=== PATIENT | female | born 1955 | race Caucasian/White ===

== ENCOUNTER → 2024-06-26 | Outpatient (CLI) | payer OTHER, SELFPAY ==
--- NOTE | 2024-06-26 | XR_ITS ---
EXAMINATION: Cervical spine, 5 views Technique: Cervical spine AP, AP odontoid, lateral, bilateral obliques, 5 views Exam date and time: June 26, 2024 1357 hours INDICATIONS: Neck pain several years radiating down the left shoulder FINDINGS: Adequate alignment cervical vertebral bodies. No cervical fracture No significant neural foraminal stenosis The odontoid is intact No significant cervical disc narrowing IMPRESSION: No cervical fracture No significant cervical disc narrowing
--- NOTE | 2024-06-26 13:21 | XR_ITS ---
Examination: PA lateral chest 2 views TECHNIQUE: Upright PA lateral chest 2 views Exam date and time: June 26, 2024 1407 hours Comparison January 15, 2022 INDICATIONS: Coughing shortness of breath beginning one week ago. FINDINGS: Normal heart size Lungs are clear. Old deformity left clavicle IMPRESSION: No pneumonia identified
--- NOTE | 2024-06-26 13:21 | XR_ITS ---
Examination: Lumbar spine, 5 views Technique: Lumbar spine AP, lateral, coned lateral lower lumbar spine, bilateral obliques 5 views Exam date and time: June 26, 2024 1357 hours INDICATIONS: Low back pain several years FINDINGS: Lumbar levoscoliosis 20 degrees Moderate osteopenia Advanced diffuse facet arthropathy Diffuse moderate to advanced lumbar degenerative disc disease, progressed compared to October 29, 2010 study No lumbar fracture IMPRESSION: Diffuse moderate to advanced lumbar degenerative disc disease
--- NOTE | 2024-06-26 13:21 | XR_ITS ---
Examination: Clavicle 2 views, left Technique: Clavicle AP, angled up AP, 2 views Exam date and time: June 26, 2024 1357 hours INDICATIONS: Left clavicle pain several years. FINDINGS: Old fracture deformity mid to distal shaft clavicle Mild osteoarthritis acromioclavicular joint. No acute fracture IMPRESSION: Old healed fracture deformity clavicular shaft
== END | disposition home or self-care (01) ==
PROVIDERS: PCP Internal Medicine; Referring Provider Internal Medicine; Visit Provider Internal Medicine
DX: M51.369 Other intervertebral disc degeneration, lumbar region without mention of lumbar back pain or lower extremity pain (principal); R07.89 Other chest pain; M54.2 Cervicalgia; M54.9 Dorsalgia, unspecified; R06.00 Dyspnea, unspecified
CPT/HCPCS: 71046; 72050; 72110; 73000

== ENCOUNTER → 2024-06-29 | Outpatient (CLI) | payer OTHER, SELFPAY ==
[2024-06-29 12:03] LABS: Basophils % (Auto) 1 % (0-2.5); Eosinophils # (Auto) 0.1 Thou/mm3 (0.0-0.5); Eosinophils % (Auto) 2 % (0-10); Hematocrit 36.7 % (36.0-46.0); Hemoglobin 11.1 g/dL (12.0-16.0); Immature Granulocytes % (Auto) 0 % (0-0); Immature Granulocytes Auto 0.02 Thou/mm3 (0.00-0.00); Lymphocytes # (Auto) 1.4 Thou/mm3 (1.0-4.8); Lymphocytes % (Auto) 25 % (10-50); Mean Corpuscular HGB Conc 30.2 g/dl (31.0-37.0); Mean Corpuscular Volume 83 fL (80-100); Monocytes # (Auto) 0.4 Thou/mm3 (0.0-0.8); Monocytes % (Auto) 6 % (0-12); Neutrophils # (Auto) 3.8 Thou/mm3 (1.8-7.7); Neutrophils % (Auto) 66 % (37-80); Nucleated Red Blood Cell % 0 /100 WBC (0); Platelet Count 201 Thou/mm3 (140-440); RDW Standard Deviation 49.7 fL (36.4-46.3); Red Blood Count 4.44 Miln/mm3 (4.00-5.20); White Blood Count 5.8 Thou/mm3 (3.6-11.0)
[2024-06-29 12:13] LABS: Glucose Estimated Average 117 mg/dL (80-131); Hemoglobin A1C 5.7 % Hgb (4.8-6.0)
[2024-06-29 12:20] LABS: Vitamin B12 302 pg/mL (211-911); Vitamin D 25 Hydroxy Total 23.6 ng/mL (7.3-40.2)
[2024-06-29 12:27] LABS: Alanine Aminotransferase 10 U/L (10-49); Albumin/Globulin Ratio 1.8 (1.2-2.2); Alkaline Phosphatase 96 U/L (46-116); Anion Gap 7 (7-16); Aspartate Amino Transferase 16 U/L (0-34); BUN/Creatinine Ratio 17 Ratio (12-20); Bilirubin,Total 0.6 mg/dL (0.3-1.2); Blood Urea Nitrogen 15 mg/dL (9-23); Carbon Dioxide 28.2 mMol/L (20.0-31.0); Cardiac Risk Estimate 4.5 RATIO (3.7-5.6); Chloride 108 mMol/L (98-107); Cholesterol 178 mg/dL (132-200); Creatinine (Component) 0.9 mg/dL (0.6-1.3); Free T4 (Free Thyroxine) 0.84 ng/dL (0.89-1.76); Globulin 2.2 gm/dL (2.3-3.5); Glucose 91 mg/dL (74-106); HDL Cholesterol 40 mg/dL (40-60); LDL Cholesterol,Calculated 115 mg/dL (0-130); Osmolality,Calculated 285 (275-295); Potassium 4.5 mMol/L (3.4-5.1); Sodium 143 mMol/L (136-145); Thyroid Stimulating Hormone 2.08 uIU/mL (0.55-4.78); Total Protein 6.2 gm/dL (5.7-8.2); Triglycerides 117 mg/dL (30-150); eGFR > 60 See Note
== END | disposition home or self-care (01) ==
LOC: COPL 10:47
PROVIDERS: PCP Internal Medicine; Referring Provider Internal Medicine; Visit Provider Internal Medicine
DX: Z00.00 Encounter for general adult medical examination without abnormal findings (principal); E55.9 Vitamin D deficiency, unspecified
CPT/HCPCS: 36415; 80053; 80061; 82306; 82607; 83036; 84439; 84443; 85025

== ENCOUNTER → 2024-07-20 | Outpatient (CLI) | payer OTHER, SELFPAY ==
--- NOTE | 2024-07-20 09:15 | XR_ITS ---
Examination: Screening digital mammography, bilateral Computer aided detection 3-D breast Tomosynthesis, bilateral Date and time of exam: 04/21/2024, 8:58 AM Comparisons: 07/01/2014 Indications: Screening Technique: Nonmagnified MLO, CC views of the breasts to been obtained, reconstructed from 3-D Tomosynthesis images. R2 computer aided detection program utilized for evaluation of suspicious masses and/or abnormal calcifications. 3-D Tomosynthesis images obtained. Technologist: Findings: There are scattered areas of fibroglandular density. No evidence of abnormal masses or suspicious calcifications. Impression: BI-RADS category 1: Negative findings (within normal) Recommend 1 year follow-up mammogram
== END | disposition home or self-care (01) ==
LOC: CDIM 08:45
PROVIDERS: Referring Provider Internal Medicine; Visit Provider Internal Medicine
DX: Z12.31 Encounter for screening mammogram for malignant neoplasm of breast (principal); R92.313 Mammographic fatty tissue density, bilateral breasts
CPT/HCPCS: 77063; 77067

== ENCOUNTER → 2024-09-28 | Outpatient (CLI) | payer OTHER, SELFPAY ==
--- NOTE | 2024-09-28 09:01 | XR_ITS ---
Examination: Knee, right , 3 views Technique: Knee AP, lateral, oblique 3 views Date and time of exam: September 28, 2024 0907 hours INDICATIONS: Injury to the knee 2 weeks ago, knee pain. FINDINGS: Prominent osteopenia Mild narrowing medial joint space and patellofemoral joint space Small knee effusion No fracture IMPRESSION: No fracture or dislocation
== END | disposition home or self-care (01) ==
PROVIDERS: PCP Internal Medicine; Referring Provider Internal Medicine; Visit Provider Internal Medicine
DX: S89.91XA Unspecified injury of right lower leg, initial encounter (principal); X58.XXXA Exposure to other specified factors, initial encounter
CPT/HCPCS: 73562

== ENCOUNTER 2024-10-10 09:24 | Emergency (ER) | payer OTHER, SELFPAY ==
[2024-10-10 09:25] VITALS: BMI 32.5
[2024-10-10 09:45] VITALS: BP 125/62; PULSE 55; RESP 16; TEMP 36.6; O2SAT 99
--- NOTE | 2024-10-10 10:04 | EDNOTE_ITS ---
<Statement entered by Dolores Turner MD - 10/19/24 19:27> As co-signing physician, I was present and available for consult prn. I concur with the plan and care as documented by the midlevel provider. Lower Extremity Injury RME/HPI General Chief Complaint: Extremity Injury, Lower Stated Complaint: FELL & HURT MY R KNEE X2 WKS AGO; ASKING FOR MRI Time Seen by Provider: 10/10/24 09:40 Source: patient Arrival date/time: 10/10/24 09:24 68-year-old female with no known medical history presents to the emergency room with a chief complaint of tenderness and pain to her right knee x 2 weeks. Mode of arrival: ambulatory Limitations: no limitations Related Data Home Medications ?Medication ?Instructions ?Recorded ?Confirmed ergocalciferol (vitamin D2) 1,250 1,250 mcg PO DAILY 0 10/23/20 10/23/20 mcg (50,000 unit) capsule (Vitamin D2) ferrous sulfate 325 mg (65 mg 325 mg PO DAILY 10/23/20 10/23/20 iron) tablet (FeroSul) gabapentin 300 mg capsule 300 mg PO HS 10/23/20 Previous Rx's ?Medication ?Instructions ?Recorded albuterol sulfate 90 mcg/actuation 90 mcg inhalation Q 6H PRN 01/08/22 breath activated powder shortness of breath #1 ea inhaler,sensor (Proair Digihaler) lidocaine 5 % topical patch 1 patch topical QDAY #15 e a 01/08/22 Allergies Allergy/AdvReac Type Severity Reaction Status Date / Time No Known Drug Allergies Allergy Verified 10/10/24 09:28 Review of Systems Review of Systems Systems Reviewed: All systems reviewed, normal except as documented Constitutional Constitutional: Reports system reviewed and no additional complaints, except as documented, Denies fatigue, Denies fever(s), Denies headache(s) and Denies weakness Eyes Eyes: Reports system reviewed and no additional complaints, except as documented, Denies blurry vision and Denies change in vision ENT Ears, Nose, Mouth, and Throat: Reports system reviewed and no additional complaints, except as documented, Denies otalgia, Denies headache(s), Denies nasal congestion, Denies throat swelling and Denies vertigo Cardiovascular Cardiovascular: Reports system reviewed and no additional complaints, except as documented, Denies chest pain, Denies dyspnea and Denies dyspnea on exertion Respiratory Respiratory: Reports system reviewed and no additional complaints, except as documented, Denies chest congestion, Denies cough, Denies dyspnea, Denies dyspnea on exertion and Denies wheezing Gastrointestinal Gastrointestinal: Reports system reviewed and no additional complaints, except as documented, Denies abdominal pain, Denies cramping, Denies nausea and Denies vomiting Genitourinary Genitourinary: Reports system reviewed and no additional complaints, except as documented Musculoskeletal Musculoskeletal: Reports system reviewed and no additional complaints, except as documented, Reports abnormal gait, Reports arthralgias, Denies back pain, Reports joint swelling and Reports limited range of motion Integumentary/Breasts Skin/Breast: Reports system reviewed and no additional complaints, except as documented and Denies wounds Neurologic Neurologic: Reports system reviewed and no additional complaints, except as documented, Reports abnormal gait, Denies confusion, Denies headache(s), Denies lack of coordination, Denies vertigo and Denies weakness Psychiatric Psychiatric: Reports system reviewed and no additional complaints, except as documented, Denies anxiety, Denies confusion, Denies depression, Denies paranoi a, Denies suicidal ideation and Denies tactile hallucinations Endocrine Endocrine: Reports system reviewed and no additional complaints, except as docu mented and Denies fatigue Hematologic/Lymphatic Hematologic/Lymphatic: Reports system reviewed and no additional complaints, except as documented and Denies lymphadenopathy Allergic/Immunologic Allergic/Immunologic: Reports system reviewed and no additional complaints, except as documented, Denies throat swelling, Denies urticaria and Denies wheezing Past Medical History Past Medical History NEUROLOGIC: Negative Neurological Disorders or Seizures CARDIAC: Negative Cardiac Disorders or Congestive Heart Failure RESPIRATORY: Negative Chronic Obstructive Pulmonary Disease (COPD) GASTROINTESTINAL: Positive Gastrointestinal Disorders and Gastrointestinal Bleed GENITOURINARY: Negative Genitourinary Disorders or Renal Disease REPRODUCTIVE: Positive Previous Pregnancies MUSCULOSKELETAL: Positive Musculoskeletal Disorders and Arthritis ENDOCRINE: Negative Endocrine Disorders, Diabetes Mellitus Type 1 or Diabetes Mellitus Type 2 HEMATOLOGIC: Positive Blood Disorders and Anemia (takes iron) OTHER HISTORY: Negative Hospitalization, Falls, Blood Transfusions, Anesthesia Reactions or Cancer Surgical History SURGICAL: Positive Abdominal Surgery, Gastric Bypass Surgery, Hysterectomy and Section; Negative Cardiac Surgery or Joint Replacement Social History SMOKING STATUS: Never smoker ED Exam General Limitations: Present no limitations General appearance: Present alert and in no apparent distress Head Head exam: Present atraumatic Eye Eye exam: Present normal appearance, PERRL and EOMI ENT ENT exam: Present normal exam, normal oropharynx and mucous membranes moist Neck Neck exam: Present normal inspection, full ROM and trachea midline Chest Chest inspection: Present normal inspection and symmetric chest wall rise Respiratory Respiratory exam: Present normal lung sounds bilaterally Cardiovascular Cardiovascular exam: Present regular rate, normal rhythm and normal heart sounds Abdominal Exam Abdominal exam: Present soft and normal bowel sounds Extremities Exam Extremities exam: Present normal inspection and full ROM Expanded Lower Extremity Exam Hip/Pelvis exam: Present normal inspection Upper leg exam: Present normal inspection Knee exam: Present tenderness, swelling, pain with valgus and pain with varus; Absent full ROM, deformity or effusion Back Exam Back exam: Present normal inspection and full ROM Neurological Exam Neurological exam: Present alert, oriented X3 and CN II-XII intact Psychiatric Psychiatric exam: Present normal affect and normal mood Skin Skin exam: Present warm, dry, intact and normal color Course Quality Measures none Orders Category Date Time Status federico wrap [Splint / Immobilizer] STAT Care 10/10/24 10:02 Active Ketorolac Inj [Toradol Inj] Med 10/10/24 10:02 Once 30 mg IM X1 ONE Vital Signs Vital signs: Vital Signs Temperature 97.8 F 10/10/24 09:45 Pulse Rate 55 L 10/10/24 09:45 Respiratory Rate 16 10/10/24 09:45 Blood Pressure 125/62 10/10/24 09:45 Pulse Oximetry (%) 99 10/10/24 09:45 Oxygen Delivery Method Room Air 10/10/24 09:45 Extremity Injury, Lower MDM Narrative MDM Narrative:: 68-year-old female with no known medical history presents to the emergency room with a chief complaint of tenderness and pain to her right knee x 2 weeks. Patient is hemodynamically stable and in no apparent distress Patient is asking for an MRI of her knee. Patient has an outpatient appointment for her MRI. Patient has had x-rays to her right knee and were negative for any acute fractures or dislocations I spoke to the patient and told her that she needs to keep her appointment for MRI as this will need to be done as an outpatient. There is no increased swel ling or erythema. There are no signs of infection. Patient states she is having tenderness and pain but is able to ambulate. Patient is not wearing a knee brace or any compression. Patient was educated in the Federico wrap was placed. Patient was given pain medication with significant improvement to her symptoms Patient was discharged and educated to follow-up with primary care provider in the next 24 to 48 hours and return to the emergency room for any evidence of worsening signs or symptoms Patient data External records reviewed:: [facility] previous records Clinical information provided by:: patient Social determinants that could affect healthcare access:: none Patient has the following chronic illnesses:: No chronic illness How is presenting disease/condition affected by chronic disease/condition?: no chronic disease Evaluation data The following diagnostics were reviewed and interpreted by me:: lab results and radiology exam(s) Lab and/or radiology exams considered but not ordered:: Labs and radiology exams considered and ordered Interpretation Summary: N/A Medications / Prescriptions Medications or Prescriptions considered but not ordered:: Medication given Medication administrations:: Medication Administration History Ketorolac Tromethamine (Ketorolac Inj 60 Mg/2 Ml Vial) 30 mg IM X1 ONE Stop: 10/10/24 10:03 Medication given Consultations Consultation(s) initiated? (list below): No Diagnosis Extremity Injury, Lower Differential Diagnosis: acute internal derangement of knee and other (Knee sprain/knee fracture) Most likely diagnosis given after review of the tests above:: Knee sprain Admission Indicated Admission indicated?: not indicated Admission Request Was there a request for admission?: No Disposition Plan Disposition Plan: Discharge Discharge Attestation Discharge Attestation: The patient and all family members were given an opportunity to ask questions and understood the discharge instructions. Discharge instructions specifically effects, indications for sooner follow up or return to the emergency department, and the expected course of current diagnosis. Patient condition: Stable Discharge Plan Plan Patient Disposition: HOME (Self Care) Discharge Disposition comment: Stable Prescriptions/Referrals Prescriptions/Med Rec: No Action ferrous sulfate [FeroSul] 325 mg (65 mg iron) tablet 325 mg PO DAILY Patient Comments: TAKE ONE TABLET BY MOUTH EVERY DAY VITAMIN gabapentin 300 mg capsule 300 mg PO HS Patient Comments: TAKE 1 CAPSULE BY MOUTH AT BEDTIME ergocalciferol (vitamin D2) [Vitamin D2] 1,250 mcg (50,000 unit) capsule 1,250 mcg PO DAILY Patient Comments: TAKE ONE CAPSULE BY MOUTH EVERY WEEK VITAMIN Proair Digihaler 90 mcg/actuation aero powdr breath act w/sensor 90 mcg inhalation Q6H PRN (Reason: shortness of breath) Qty: 1 0RF lidocaine 5 % adhesive patch,medicated 1 patch topical QDAY Qty: 15 0RF Rx Instructions: leave on most painful area for up to 12 hrs Problem List Clinical Impression: Right knee sprain Patient/Caregiver Discharge Instructions Education Materials: ED FEDERICO Wrap, ED Knee Sprain Additional Instructions: Please follow-up with your primary care provider in the next 24 to 48 hours Please keep your appointment for your MRI as this will assess for any ligament damage or tears. After your results of your MRI if there is a tear you will need to follow-up with an health education specialist for further management Please keep your Federico wrap in place until you are seen and cleared by health education specialist. For any evidence of worsening signs or symptoms return to the emergency room immediately Print Language: Bolivian Stand Alone Forms: Shital Award Info., Patient Portal Info Letter PA/BOX MAKER PAPERBOARD Supervising Physician PA/BOX MAKER PAPERBOARD Supervising Physician: Dr. TURNER
[2024-10-10] MEDS: KETOROLAC INJ 60 MG/2 ML VIAL 30 MG IM (10:17)
== END 2024-10-10 10:23 | disposition home or self-care (01) ==
LOC: SERX 10:27
PROVIDERS: Emergency Provider Emergency Medicine; PCP Internal Medicine
DX: S83.91XA Sprain of unspecified site of right knee, initial encounter (principal); W19.XXXA Unspecified fall, initial encounter
CPT/HCPCS: 96372; 99283; J1885

== ENCOUNTER → 2024-11-28 | Outpatient (CLI) | payer OTHER, SELFPAY ==
--- NOTE | 2024-11-28 10:30 | XR_ITS ---
Exam: MRI knee without contrast, right Date and time of exam: November 28, 2024 1201 hours INDICATIONS: Medial right-sided knee pain swelling burning sensation after fall 6 weeks ago Technique: Multiple axial, coronal, and sagittal sections on the knee have been obtained. T2-Weighted sagittal, fat-suppressed images, TR 3,500, TE 62, T2 weighted coronal fat-saturated images, TR 3,500, TE 62 Proton density sagittal sections, TR 1800, TE 31. T-1 weighted coronal images, TR 524, TE 13.0 Findings: Medial meniscus anterior horn intact. Medial meniscus, body replaced by isointense signal, extruded from the joint space, meniscocapsular separation. Posterior horn medial meniscus horizontal linear tear communicating superior articular surface, meniscocapsular separation. Lateral meniscus anterior horn horizontal linear tear Lateral meniscus, body is horizontal linear tear Posterior horn lateral meniscus horizontal linear tear communicating inner margin Anterior cruciate ligament moderate sprain Posterior cruciate ligament appears intact. Knee effusion is large. Quadriceps and patellar tendons appear intact. There is no evidence of tendinosis. Inflammatory change or fracture of Hoffa's fat pad is not seen. Medial patellar facet demonstrates severe thinning. Lateral patellar facet cartilage demonstrates severe thinning. Trochlear cartilage demonstrates severe thinning. Marrow signal increased proximal medial tibia Medial collateral ligament appears intact. Illiotibial band and fibular collateral ligament are intact. Biceps femoris tendons appear intact. Medial femoral condylar articular cartilage demonstrates severe thinning. Lateral femoral condylar articular cartilage demonstratessevere thinning. Tibial plateau cartilage demonstrates severe thinning. Impression: Extensive medial lateral meniscus tears Meniscocapsular separation body and posterior horn medial meniscus Moderate sprain anterior cruciate ligament
== END | disposition home or self-care (01) ==
PROVIDERS: PCP Internal Medicine; Referring Provider Internal Medicine; Visit Provider Internal Medicine
DX: S83.281A Other tear of lateral meniscus, current injury, right knee, initial encounter (principal); S83.241A Other tear of medial meniscus, current injury, right knee, initial encounter; S83.194A Other dislocation of right knee, initial encounter; S83.511A Sprain of anterior cruciate ligament of right knee, initial encounter; W19.XXXA Unspecified fall, initial encounter
CPT/HCPCS: 73721

== ENCOUNTER → 2024-12-01 | Outpatient (CLI) | payer OTHER, SELFPAY ==
--- NOTE | 2024-12-01 13:00 | XR_ITS ---
Examination: MRI cervical spine without intravenous contrast Date and time of exam: December 01, 2024, 1340 hours INDICATIONS: Neck pain radiating to the shoulders 5 years Technique: Multiple axial and sagittal sections of the cervical spine to been obtained. T2 weighted sagittal sections, TR 3, 270, TE 117 T1-weighted sagittal sections, TR 500, TE 11 T1-weighted axial sections, TR 607, TE 12, axial sections TR 18, TE 27 and T2 weighted transverse sections, TR 3920, TE 122. Findings: 1 mm anterolisthesis C4 on C5 No cervical fracture or Intact odontoid. Diffuse cervical disc desiccation. Mild disc narrowing at C4-C5, C5-C6, C6-C7 Diffuse cervical disc desiccation No localized enlargement cervical cord C2-C3 no disc protrusion C3-C4 no disc protrusion C4-C5 3 mm central subarticular osteophyte disc complex, advanced left neural foraminal stenosis C5-C6 mild left neural foraminal stenosis C6-C7 no disc protrusion C7-T1 no disc protrusion IMPRESSION: No cervical fracture Mild cervical degenerative disc disease C4-C5, C5-C6, C6-C7 C4-C5 3 mm central subarticular osteophyte disc complex, advanced left neural foraminal stenosis
== END | disposition home or self-care (01) ==
LOC: SMRI 12:59
PROVIDERS: PCP Internal Medicine; Referring Provider Psychiatry & Neurology Neurology; Visit Provider Psychiatry & Neurology Neurology
DX: M50.321 Other cervical disc degeneration at C4-C5 level (principal); M48.02 Spinal stenosis, cervical region; M25.78 Osteophyte, vertebrae
CPT/HCPCS: 72141

== ENCOUNTER → 2024-12-19 | Outpatient (CLI) | payer OTHER, SELFPAY ==
[2024-12-19 16:52] LABS: Basophils # (Auto) 0.0 Thou/mm3 (0.0-0.2); Basophils % (Auto) 1 % (0-2.5); Eosinophils # (Auto) 0.2 Thou/mm3 (0.0-0.5); Eosinophils % (Auto) 3 % (0-10); Hematocrit 35.1 % (36.0-46.0); Hemoglobin 10.4 g/dL (12.0-16.0); Immature Granulocytes Auto 0.01 Thou/mm3 (0.00-0.00); Lymphocytes # (Auto) 1.8 Thou/mm3 (1.0-4.8); Lymphocytes % (Auto) 31 % (10-50); Mean Corpuscular HGB Conc 29.6 g/dl (31.0-37.0); Mean Corpuscular Hemoglobin 24.2 pg (25.0-35.0); Mean Corpuscular Volume 82 fL (80-100); Monocytes # (Auto) 0.4 Thou/mm3 (0.0-0.8); Monocytes % (Auto) 8 % (0-12); Neutrophils # (Auto) 3.4 Thou/mm3 (1.8-7.7); Neutrophils % (Auto) 58 % (37-80); Nucleated Red Blood Cell # 0.00 Thou/mm3 (0.00-0.00); Nucleated Red Blood Cell % 0 /100 WBC (0); Platelet Count 217 Thou/mm3 (140-440); RDW Standard Deviation 49.7 fL (36.4-46.3); Red Blood Count 4.30 Miln/mm3 (4.00-5.20); White Blood Count 5.8 Thou/mm3 (3.6-11.0)
[2024-12-19 17:00] LABS: T4 (Thyroxine) 8.0 mcg/dL (4.5-10.9)
[2024-12-19 17:04] LABS: Folate 7.43 ng/mL (>5.38); Glucose Estimated Average 131 mg/dL (80-131); Hemoglobin A1C 6.2 % Hgb (4.8-6.0); Vitamin B12 266 pg/mL (211-911); Vitamin D 25 Hydroxy Total 29.2 ng/mL (7.3-40.2)
[2024-12-19 17:18] LABS: Alanine Aminotransferase 11 U/L (10-49); Albumin, Serum 4.0 gm/dL (3.4-4.8); Albumin/Globulin Ratio 1.8 (1.2-2.2); Alkaline Phosphatase 99 U/L (46-116); Anion Gap 7 (7-16); Aspartate Amino Transferase 16 U/L (0-34); BUN/Creatinine Ratio 15 Ratio (12-20); Bilirubin,Total 0.5 mg/dL (0.3-1.2); Blood Urea Nitrogen 15 mg/dL (9-23); Calcium 9.0 mg/dL (8.3-10.6); Calcium (Corrected) 9.0 mg/dL (8.5-10.1); Carbon Dioxide 29.6 mMol/L (20.0-31.0); Chloride 106 mMol/L (98-107); Creatinine (Component) 1.0 mg/dL (0.6-1.3); Free T4 (Free Thyroxine) 0.94 ng/dL (0.89-1.76); Globulin 2.2 gm/dL (2.3-3.5); Glucose 85 mg/dL (74-106); HDL Cholesterol 44 mg/dL (40-60); Osmolality,Calculated 284 (275-295); Potassium 4.3 mMol/L (3.4-5.1); Sodium 143 mMol/L (136-145); Thyroid Stimulating Hormone 3.77 uIU/mL (0.55-4.78); Total Protein 6.2 gm/dL (5.7-8.2); Triglycerides 140 mg/dL (30-150); eGFR > 60 See Note
[2024-12-19 18:09] LABS: Cardiac Risk Estimate 4.3 RATIO (3.7-5.6); Cholesterol 190 mg/dL (132-200); LDL Cholesterol,Calculated 118 mg/dL (0-130)
[2024-12-25 06:36] LABS: T3,Total* 112 ng/dL (76-181)
== END | disposition home or self-care (01) ==
PROVIDERS: PCP Internal Medicine; Referring Provider Student in an Organized Health Care Education/Training Program; Visit Provider Student in an Organized Health Care Education/Training Program
DX: F33.9 Major depressive disorder, recurrent, unspecified (principal)
CPT/HCPCS: 36415; 80053; 80061; 81001; 82306; 82607; 82746; 83036; 84436; 84439; 84443; 84480; 85025

== ENCOUNTER 2025-02-05 10:06 | Outpatient (AMB) | payer OTHER, SELFPAY ==
[2025-02-05 10:26] VITALS: PULSE 60; RESP 18; TEMP 36.2; O2SAT 98; BMI 32.5
--- NOTE | 2025-02-05 10:26 | ORTHONT_ITS ---
Vital signs 02/05/25 10:26 Height 1.75 m Height Method Stated Weight 99.79 kg Weight Measurement Method Stated by Patient BMI 32.5 Blood Pressure Source Automatic Cuff Blood Pressure Location Left Upper Arm Position Sitting Respiration 18 Pulse 60 Pulse Source Monitor Temp 97.1 F Temp Source Temporal Artery Scan Pulse Oximetry (%) 98 Oxygen Delivery Method Room Air Med/Allergies Allergies & Medications Allergies No Known Drug Allergies Allergy (Verified 02/05/25 10:28) Medication Reconciliation ergocalciferol (vitamin D2) 1,250 mcg (50,000 unit) capsule (Vitamin D2) 1,250 mcg PO DAILY 10/23/20 [History Confirmed 02/05/25] ferrous sulfate 325 mg (65 mg iron) tablet (FeroSul) 325 mg PO DAILY 10/23/20 [History Confirmed 02/05/25] gabapentin 300 mg capsule 300 mg PO HS 10/23/20 [History Confirmed 02/05/25] albuterol sulfate 90 mcg/actuation breath activated powder inhaler,sensor (Proair Digihaler) 90 mcg inhalation Q6H PRN shortness of breath #1 ea 01/08/22 [Rx Confirmed 02/05/25] lidocaine 5 % topical patch 1 patch topical QDAY #15 ea 01/08/22 [Rx Confirmed 02/05/25] meloxicam 7.5 mg tablet 7.5 mg PO QDAY #45 tabs 02/05/25 [Rx] Exam Exam Breathing is nonlabored. Patient has a normal mood and affect. Bilateral extremities were evaluated and demonstrates sensation intact to light touch. Palpable pedal pulses are present. No significant edema is present. Bilateral hips were examined. The patient has no pain with log roll of the hips. Internal rotation to 30 degrees and external rotation to 30 degrees is painless. Negative FADIR. The right knee was also examined. The right knee is in varus alignment. Range of motion from 0-115 degrees. Knee is stable to varus and valgus as well as AP translation with <5mm. Patient has a negative McMurrays. There is no pain with patellofemoral compression and no crepitus noted. The knee is tender to palpation medially. X-rays demonstrate moderate arthritis. She has an MRI which demonstrates medial and lateral meniscus tears as well as severe cartilage thinning of the medial tibial plateau Assessment and Plan Problem List (1) Pain in right knee: Status: Acute Plan: ASSESSMENT AND PLAN 1. Right knee pain: The right knee pain has been ongoing for approximately 3 months following an injury. An MRI revealed a meniscus tear and severe cartilage thinning, indicative of arthritis. The patient has not tried NSAIDs, physical therapy, or recent injections. A standing x-ray is necessary to determine if there is [id number] contact. A prescription for an anti-inflammatory medication will be provided for immediate relief. A standing x-ray will be ordered to assess the need for a total knee replacement. If the x-ray confirms [id number] contact, treatment options will include injections or surgery. Injections have been effe ctive in the past but eventually stopped working. The patient is advised to try the prescribed anti-inflammatory medication and to get the standing x-ray done today. Further treatment will be discussed based on the x-ray results. 2. Vascular issue in the right leg: New vascular changes in the right leg, including varicose veins. A referral to a vein specialist will be recommended for further evaluation and management. The patient is advised to follow up with their primary care physician for the referral to a vein doctor. Office Procedures GNS Level of Care Nursing/Assessment Patient Status: Initial/New Patient Nursing Assessment/Reassesment: Medication Reconciliation, Update PMH in EMR and Vital Signs Coordination of Care: Complex Care and Chronic Disease 1-5, Education Complex Pt/Fam, Consent,records obtained, informed consent, Lab and Imaging orders, Results/Orders obtained and Staff clarify orders Special Needs: Language special needs New Patient Charge New Patient Point Assignment: 1109 New Patient Point Charge: PAPER PATTERN FOLDER Level 3 (0391-4203) MA Intake Visit Data Collection New Patient or Established: New Patient (never been to [facility]) Reason for Visit:: RIGHT MENISCUS Seen by Clinical Staff ONLY (RN/MA): No Center Sales And Service Associate Required: No PCP or OBGYN visit in last 3 months: Yes Hx Now: No Do You Feel Safe at Home: Yes Authorities Contacted: N/A Questionairres Past Medical History Past Medical History Have you ever been diagnosed with any of the following: Neurological Problems Seizures: No Cardiology Problems Congestive Heart Failure: No Respiratory Problems Chronic Obstructive Pulmonary Disease (COPD): No Stomache/Intestinal Problems Gastrointestinal Bleed: Yes Genital/Urinary Problems Renal Disease: No Reproductive Problems Previous Pregnancies: Yes Musculoskeletal Problems Arthritis: Yes Endocrine Problems Diabetes Mellitus Type 1: No Diabetes Mellitus Type 2: No Blood Problems Anemia: Yes (takes iron) Other Problems Hospitalization: No Falls: No Blood Transfusions: No Anesthesia Reactions: No Cancer: No Surgical History Hysterectomy: Yes Subjective Visit Visit for: new patient and knee Immunization / Flu Flu Vaccine in the Last 12 Months: No Flu Vaccine Exclusion Criteria: No Exclusion Criteria History of Present Illness Chief complaint: RIGHT MENISCUS Date of injury / onset of symptoms: 3 MONTHS AGO HISTORY OF PRESENT ILLNESS IJesu, have obtained verbal consent from the patient, to be recorded during this encounter which may include, but not limited to, medical history, examination, treatment plans, and relevant health information.? Patient was informed that recording will be read and reviewed by myself before inclusion in the medical chart. The patient is a pleasant 69-year-old female who presents today for evaluation of her right knee. She has been experiencing right meniscus pain for the past 3 months. She sustained an injury to her right knee approximately 3 months ago, which was initially evaluated in the emergency room where an x-ray suggested a torn meniscus. Despite this, no further action was taken. Her primary care physician recommended physical therapy, but she found it too painful to continue. An MRI was performed, and she was referred to our clinic. Her mobility is severely limited due to the pain, and she has been using a wheelchair for the past week and a half. She reports the development of a knot in her knee and a sensation of fluid accumulation. Additionally, she notes a change in the appearance of her veins since the injury. She has a history of knee problems, which were previously attributed to growing pains. She has not received any treatment since her injury 3 months ago, other than attempting to manage the pain. 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 She also reports recent weight gain, which she believes is exacerbating her symptoms. She has found some relief from a homemade remedy and a combination of two Tylenol and two Advil tablets, as suggested by her [id number]. She has previously received injections for her knee, which provided temporary relief. PAST SURGICAL HISTORY: Left total knee arthroplasty approximately 3 years ago. Personal History Red flag PMH: none BMI Counceling provided: No Pain Pain level (0-10): 8 Pain location: inside (medial) and anterior Pain quality: sharp and burning Pain timing: increases with activity Associated signs & symptoms: numbness, weakness and stiffness Ambulatory data Ambulatory device: other (specify) (WHEELCHAIR) Treatments Number of previous injections: 0 Improvement with previous injections: No Number of Physical Therapy sessions: 0 Improvement with PT: No Improvement with NSAIDS: no Review of Systems Review of Systems: All systems negative unless otherwise noted in HPI.
--- NOTE | 2025-02-05 10:31 | XR_ITS ---
EXAMINATION: Bilateral AP knees standing single view Right knee. Lateral axial 3 views TECHNIQUE: Bilateral AP knees standing single view Right knee PA flexion standing, standing lateral, axial right knee 3 views total 4 views Date and time: February 05, 2025, 1043 hours, comparison September 28, 2024 INDICATIONS: Patient fell 3 months ago with injury to the right knee, right knee pain. FINDINGS: Moderate narrowing medial joint space right knee Meniscus calcification Moderate osteoarthritis right patellofemoral joint. No fracture Small knee effusion Total left knee arthroplasty with satisfactory alignment No loosening of the prosthetic components IMPRESSION: Moderate narrowing medial joint space right knee Moderate osteoarthritis right patellofemoral joint
== END 2025-02-05 10:35 | disposition home or self-care (01) ==
LOC: HODSRG 10:06
PROVIDERS: PCP Internal Medicine; Referring Provider Internal Medicine; Supervising Provider Orthopaedic Surgery Adult Reconstructive Orthopaedic Surgery; Visit Provider Orthopaedic Surgery Adult Reconstructive Orthopaedic Surgery
DX: M25.561 Pain in right knee (principal); I83.91 Asymptomatic varicose veins of right lower extremity; M17.11 Unilateral primary osteoarthritis, right knee
CPT/HCPCS: 73564; 99203; G0463

== ENCOUNTER 2025-02-07 10:41 | Outpatient (AMB) | payer OTHER, SELFPAY ==
--- NOTE | 2025-02-07 11:09 | ORTHONT_ITS ---
Vital signs 02/07/25 11:10 Height 1.75 m Height Method Stated Weight 99.79 kg Weight Measurement Method Stated by Patient BMI 32.5 BP 124/72 Blood Pressure Source Automatic Cuff Blood Pressure Location Left Upper Arm Position Sitting Respiration 18 Pulse 64 Pulse Source Monitor Temp 97.8 F Temp Source Temporal Artery Scan Pulse Oximetry (%) 98 Oxygen Delivery Method Room Air Med/Allergies Allergies & Medications Allergies No Known Drug Allergies Allergy (Verified 02/07/25 11:11) Medication Reconciliation ergocalciferol (vitamin D2) 1,250 mcg (50,000 unit) capsule (Vitamin D2) 1,250 mcg PO DAILY 10/23/20 [History Confirmed 02/07/25] ferrous sulfate 325 mg (65 mg iron) tablet (FeroSul) 325 mg PO DAILY 10/23/20 [History Confirmed 02/07/25] gabapentin 300 mg capsule 300 mg PO HS 10/23/20 [History Confirmed 02/07/25] albuterol sulfate 90 mcg/actuation breath activated powder inhaler,sensor (Proair Digihaler) 90 mcg inhalation Q6H PRN shortness of breath #1 ea 01/08/22 [Rx Confirmed 02/07/25] lidocaine 5 % topical patch 1 patch topical QDAY #15 ea 01/08/22 [Rx Confirmed 02/07/25] meloxicam 7.5 mg tablet 7.5 mg PO QDAY #45 tabs 02/05/25 [Rx Confirmed 02/07/25] Exam Exam Breathing is nonlabored. Patient has a normal mood and affect. Bilateral extremities were evaluated and demonstrates sensation intact to light touch. Palpable pedal pulses are present. No significant edema is present. Bilateral hips were examined. The patient has no pain with log roll of the hips. Internal rotation to 30 degrees and external rotation to 30 degrees is painless. Negative FADIR. The right knee was also examined. The right knee is in varus alignment. Range of motion from 0-115 degrees. Knee is stable to varus and valgus as well as AP translation with <5mm. Patient has a negative McMurrays. There is no pain with patellofemoral compression and no crepitus noted. The knee is tender to palpation medially. X-rays demonstrate moderate arthritis. She has an MRI which demonstrates medial and lateral meniscus tears as well as severe cartilage thinning of the medial tibial plateau Assessment and Plan Problem List (1) Pain in right knee: Status: Acute Plan: ASSESSMENT AND PLAN 1. Right knee pain: The right knee pain has been ongoing for approximately 3 months following an injury. An MRI revealed a meniscus tear and severe cartilage thinning, indicative of arthritis. The patient has not tried NSAIDs, physical therapy, or recent injections. A standing x-ray is necessary to determine if there is [id number] contact. A prescription for an anti-inflammatory medication will be provided for immediate relief. A standing x-ray will be ordered to assess the need for a total knee replacement. If the x-ray confirms [id number] contact, treatment options will include injections or surgery. Injections have been effective in the past but eventually stopped working. The patient is advised to try the prescribed anti-inflammatory medication and to get the standing x-ray done today. Standing weightbearing x-rays demonstrate moderate arthritis of the right knee. We discussed a cortisone injection today as a reasonable option Recommend knee cortisone injection as patient would like to proceed with conservative treatment at this time. The risks and benefits of the procedure were reviewed with the patient and patient gave verbal consent to continue with the procedure. Procedure: performed by Dr. Mena Using sterile technique the Right knee was thoroughly prepped with alcohol, and approximately 1 cc of Depo-Medrol 80mg/mL and 4 cc of 0.2% ropivacaine was injected without resistance into the medial tibial femoral joint space. The patient tolerated the procedure. 2. Vascular issue in the right leg: New vascular changes in the right leg, including varicose veins. A referral to a vein specialist will be recommended for further evaluation and management. The patient is advised to follow up with their primary care physician for the referral to a vein doctor. Advanced Care Planning Discussion Advance care planning discussed with:: patient Office Procedures GNS Level of Care Nursing/Assessment Patient Status: Established Patient Nursing Assessment/Reassesment: Medication Reconciliation, Update PMH in EMR and Vital Signs Coordination of Care: Complex Care and Chronic Disease 1-5, Education Complex Pt/Fam, Consent,records obtained, informed consent, Results/Orders obtained and Staff clarify orders Established Patient Charge Established Patient Point Assignment: 95 Established Patient Point Charge: EP Level 3 (80-115) Surgical Proc/IM SQ injection Minor Surgical Procedure: Yes (RIGHT KNEE INJECTION) Medication Given Medication Given Medication Given: Yes Documented Dose Given: 1 Route: Infiitration Medication Given Medication Given Medication Given: Yes Documented Dose Given: 4 Route: Infiitration Office Meds methylprednisolone acetate 80 mg/mL suspension for injection Performing Provider: Jesu Mena MD Performing Location: [facility] Administered by: Jesu Mena MD on 02/07/25 11:29 Dose Route Admin Location Dispensed Lot Number Expiration Date Pack age [facility] [employer] Under Cutting Machine Operator 80 mg intra-articular 1 mL [id number] 11/07/26 [address]-1 7 [id number] [employer] ropivacaine (PF) 2 mg/mL (0.2 %) injection solution Performing Provider: Jesu Mena MD Performing Location: [facility] Administered by: Jesu Mena MD on 02/07/25 11:29 Dose Route Admin Location Dispensed Lot Number Expiration Date Pack age [facility] [employer] Under Cutting Machine Operator 20 mL Infiltration 20 mL [id number] 05/10/27 25935-840-04 [id number] [facility] Intake Visit Data Collection New Patient or Established: Established Patient (seen at [facility] within 3 years) Reason for Visit:: XRAY RESULTS RIGHT KNEE Seen by Clinical Staff ONLY (RN/MA): No Teacher'S Assistant Required: No PCP or OBGYN visit in last 3 months: Yes Hx Now: No Do You Feel Safe at Home: Yes Authorities Contacted: N/A Questionairres Past Medical History Past Medical History Have you ever been diagnosed with any of the following: Neurological Problems Seizures: No Cardiology Problems Congestive Heart Failure: No Respiratory Problems Chronic Obstructive Pulmonary Disease (COPD): No Stomache/Intestinal Problems Gastrointestinal Bleed: Yes Genital/Urinary Problems Renal Disease: No Reproductive Problems Previous Pregnancies: Yes Musculoskeletal Problems Arthritis: Yes Endocrine Problems Diabetes Mellitus Type 1: No Diabetes Mellitus Type 2: No Blood Problems Anemia: Yes (takes iron) Other Problems Hospitalization: No Falls: No Blood Transfusions: No Anesthesia Reactions: No Cancer: No Surgical History Hysterectomy: Yes Subjective Visit Visit for: follow up visit and knee Immunization / Flu Flu Vaccine in the Last 12 Months: No Flu Vaccine Exclusion Criteria: No Exclusion Criteria History of Present Illness Chief complaint: XRAY RESULTS RIGHT KNEE Date of injury / onset of symptoms: 3 MONTHS AGO HISTORY OF PRESENT ILLNESS IJesu, have obtained verbal consent from the patient, to be recorded during this encounter which may include, but not limited to, medical history, examination, treatment plans, and relevant health information.? Patient was informed that recording will be read and reviewed by myself before inclusion in the medical chart. The patient is a pleasant 69-year-old female who presents today for evaluation of her right knee. She has been experiencing right meniscus pain for the past 3 months. She sustained an injury to her right knee approximately 3 months ago, which was initially evaluated in the emergency room where an x-ray suggested a torn meniscus. Despite this, no further action was taken. Her primary care physician recommended physical therapy, but she found it too painful to continue. An MRI was performed, and she was referred to our clinic. Her mobility is severely limited due to the pain, and she has been using a wheelchair for the past week and a half. She reports the development of a knot in her knee and a sensation of fluid accumulation. Additionally, she notes a change in the appearance of her veins since the injury. She has a history of knee problems, which were previously attributed to growing pains. She has not received any treatment since her injury 3 months ago, other than attempting to manage the pain. 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 She also reports recent weight gain, which she believes is exacerbating her symptoms. She has found some relief from a homemade remedy and a combination of two Tylenol and two Advil tablets, as suggested by her [id number]. She has previously received injections for her knee, which provided temporary relief. PAST SURGICAL HISTORY: Left total knee arthroplasty approximately 3 years ago. Personal History Red flag PMH: none BMI Counceling provided: No Pain Pain level (0-10): 8 Pain location: inside (medial) and anterior Pain quality: sharp and burning Pain timing: increases with activity Associated signs & symptoms: numbness, weakness and stiffness Ambulatory data Ambulatory device: other (specify) (WHEELCHAIR) Treatments Number of previous injections: 0 Improvement with previous injections: No Number of Physical Therapy sessions: 0 Improvement with PT: No Improvement with NSAIDS: no Review of Systems Review of Systems: All systems negative unless otherwise noted in HPI.
[2025-02-07 11:10] VITALS: BP 124/72; PULSE 64; RESP 18; TEMP 36.6; O2SAT 98; BMI 32.5
== END 2025-02-07 11:25 | disposition home or self-care (01) ==
LOC: HODSRG 10:41
PROVIDERS: PCP Internal Medicine; Referring Provider Internal Medicine; Supervising Provider Orthopaedic Surgery Adult Reconstructive Orthopaedic Surgery; Visit Provider Orthopaedic Surgery Adult Reconstructive Orthopaedic Surgery
DX: M25.561 Pain in right knee (principal); M17.11 Unilateral primary osteoarthritis, right knee; I83.91 Asymptomatic varicose veins of right lower extremity
CPT/HCPCS: 20610; 99213; J1010; J2795; G0463